=== PATIENT | male | born 1985 | race Caucasian/White ===

== ENCOUNTER → 2019-09-25 14:19 | Outpatient (CLI) | payer OTHER, SELFPAY ==
--- NOTE | 2019-09-25 14:25 | RAD_ITS ---
STUDY: X-RAY CHEST REASON FOR EXAM: Male, 34 years old. Coughing and congestion. Lightheadedness. History of pectus excavatum with trauma surgery. TECHNIQUE: PA and lateral views of the chest. COMPARISON: July 27, 2015. FINDINGS: The lungs are clear and expanded. There is no demonstrated pleural abnormality. Normal size heart. Normal mediastinum and nathan. Normal visualized pulmonary arteries. Normal visualized aortic arch and descending thoracic aorta. Normal visualized thoracic spine. Again seen in evidence of pectus excavatum deformity, unchanged from prior study. There is no demonstrated abnormality of the visualized soft tissue structures of the upper abdomen. RAD/Chest PA and Lateral IMPRESSION: Pectus excavatum deformity without acute cardiopulmonary disease or major interval change. Electronically Signed: Issa Patino DO at 21:08 EST Tel [phone], Service support ,
[2019-09-25 15:44] LABS: Absolute Lymphocyte Count 2.18 X10^3/uL (0.83-4.51); Absolute Neutrophil Count 2.4 X10^3/uL (2.0-7.7); Basophil# 0.02 X10^3/uL; Basophil% 0.4 % (0-1); Eosinophil# 0.01 X10^3/uL; Eosinophils% 0.2 % (0-5); Hematocrit 46.6 % (40-54); Hemoglobin 15.9 g/dL (13.0-16.5); Lymphocyte # 2.18 X10^3/ul (4.0); Lymphocyte % 44.9 % (19-41); Mean Corp Hgb Conc 34.1 g/dL (32-36); Mean Corpuscular Hgb 30.5 pg (27.0-32.0); Mean Corpuscular Volume 89.3 fL (80-94); Monocyte# 0.23 X10^3/uL; Monocyte% 4.7 % (0-10); NRBC Flagged by Analyzer 0 % (0-5); Neutrophil # 2.39 X10^3/uL (2.7-7.7); Neutrophil % 49.4 % (47-70); Platelet Count 204 K/mm3 (150-450); RBC Distribution Width SD 39.4 fl (35.1-43.9); Red Blood Count 5.22 M/mm3 (4.6-6.2); White Blood Count 4.9 K/mm3 (4.4-11.0)
[2019-09-25 16:07] LABS: Anion Gap 6 (5-15); BUN 17 mg/dL (7-18); BUN/Creat Ratio 15.9 RATIO (10-20); Calcium,Total 9.3 mg/dL (8.5-10.1); Chloride 105 mmol/L (98-107); Creatinine, Serum 1.07 mg/dL (0.70-1.30); EST Glomerular Filtration Rate 83 mL/min (>60); Est Glom Filt Rate - Afr Amer 100 mL/min (>60); Glucose 84 mg/dL (74-106); Potassium 3.9 mmol/L (3.5-5.1); Sodium Level 141 mmol/L (136-145)
== END ==
PROVIDERS: PCP Family Medicine; Referring Provider Family Medicine; Visit Provider Family Medicine
DX: R05 Cough (principal); R55 Syncope and collapse
CPT/HCPCS: 36415; 71046; 80048; 85025

== ENCOUNTER → 2020-03-16 11:53 | Outpatient (CLI) | payer BC, SELFPAY ==
[2015-07-27 18:05] VITALS: BMI 30.9
[2020-03-16 16:19] LABS: Vitamin D,25 Hydroxy 46.4 ng/mL
[2020-03-16 16:26] LABS: Anion Gap 6 (5-15); BUN 15 mg/dL (7-18); BUN/Creat Ratio 14.9 RATIO (10-20); Calcium,Total 8.8 mg/dL (8.5-10.1); Chloride 106 mmol/L (98-107); Cholesterol 168 mg/dL (200); Creatinine, Serum 1.01 mg/dL (0.70-1.30); EST Glomerular Filtration Rate 88 mL/min (>60); Est Glom Filt Rate - Afr Amer 107 mL/min (>60); Glucose 86 mg/dL (74-106); High Density Lipoprotein 28 mg/dL; Potassium 4.1 mmol/L (3.5-5.1); Sodium Level 138 mmol/L (136-145); Triglycerides 241 mg/dL; Very Low Density Lipoprotein 48 mg/dL (5-40)
== END ==
PROVIDERS: PCP Family Medicine; Visit Provider Family Medicine
DX: Z00.00 Encounter for general adult medical examination without abnormal findings (principal)
CPT/HCPCS: 36415; 80048; 80061; 82306

== ENCOUNTER → 2020-08-25 14:07 | Outpatient (CLI) | payer BC, SELFPAY ==
--- NOTE | 2020-08-25 14:16 | VDLE_ITS ---
Reason For Study: leg pain Procedure LEFT This is a venous duplex using B-mode, color GSV is normal. flow and spectral Doppler. CFV is compressible, spontaneous, phasic, Exam performed in department. competent, and demonstrates normal The exam was abbreviated due to the COVID 19 augmentation. protocol. FV is compressible, spontaneous, phasic, The exam was diagnostic. competent and demonstrates normal A preliminary report was called and/or faxed augmentation. to Dr. Sam. POP V is compressible, spontaneous, phasic, competent and demonstrates normal augmentation. T/P Trunk is compressible. PTV is compressible. LT PerV is compressible. Interpretation Summary Deep veins of the left lower extremity are patent and compressible segmentally. There is no evidence of left lower extremity deep vein thrombosis. Valvular competence appears intact within the proximal deep venous system on the left . The left great saphenous vein appears patent and compressible segmentally. Ordering Physician: Finn Sam Performed By: Herbert Araujo RVT
== END ==
PROVIDERS: PCP Family Medicine; Referring Provider Family Medicine; Visit Provider Family Medicine
DX: M79.605 Pain in left leg (principal)
CPT/HCPCS: 93971

== ENCOUNTER → 2021-04-15 | Outpatient (CLI) | payer BC, SELFPAY | END | disposition home or self-care (01) | LOC: LABSPEC 11:27 | PROVIDERS: PCP Family Medicine; Visit Provider Family Medicine | DX: R05 Cough (principal) | CPT/HCPCS: 87635; U0005; U0003 ==

== ENCOUNTER 2021-04-20 14:12 | Emergency (ER) | payer BC, SELFPAY ==
[2021-04-20 14:13] VITALS: BP 164/99; PULSE 72; RESP 15; TEMP 36.6; O2SAT 100; BMI 29.0
--- NOTE | 2021-04-20 15:10 | RAD_ITS ---
STUDY: X-RAY CHEST REASON FOR EXAM: Male, 36 years old. COVID TECHNIQUE: Single AP portable view of the chest. COMPARISON: Comparison is made with prior examination dated 09/25/2019. FINDINGS: Hyperinflation. Once again, there is deformity of the upper chest bilaterally. Normal size heart. Normal mediastinum and nathan. Normal visualized pulmonary arteries. Normal visualized aortic arch and descending thoracic aorta. Normal visualized thoracic spine. Normal visualized ribs, clavicles, and shoulders. There is no demonstrated abnormality of the visualized soft tissue structures of the upper abdomen. RAD/Chest 1 View IMPRESSION: Hyperinflation. The lungs are clear. Electronically Signed: Clint Mancilla MD at 15:35 EDT , Service support ,
--- NOTE | 2021-04-20 15:16 | ED.VIS.DYS ---
HPI History of Present Illness Chief Complaint: Cough Detail of Chief Complaint: Diagnosed Covid positive last . Informant: patient Onset/Context/Timing Onset: Weeks Context: gradual Timing: Continuous Quality: Positive for Dyspnea on exertion Current Severity: Mild Maximum Severity: Mild Associated Symptoms cough and yellow sputum Chest Pain: Negative for None, Pleuritic and Pressure Narrative Narrative: 36-year-old male has history of mild asthma. Has had symptoms since last Monday so about a week of symptoms and he was diagnosed on with COVID-19. These have a bit more trouble breathing. Really denies chest pain. He has had fevers as high as 103. at home with similar symptoms. PE Risk Factors: Negative for Cancer, OCP + Smoking + > 35, Prior DVT or PE, Recent immobilization, Recent surgery and Recent travel Prior similar symptoms: Yes Recent Illness/Hospitalization: No PFSH PFSH Medical History (Updated 04/20/21 @ 15:[address] Corwin Langley MD) Asthma History of deviated nasal septum History of fungal pneumonia Home Medications No Known/Unobtainable [No Known Home Medications] 07/01/15 [History Last Taken Unknown] Allergy/AdvReac Type Severity Reaction Status Date / Time No Known Allergies Allergy Verified 04/20/21 15:22 Surgical History (Updated 04/20/21 @ 15:25 by Anusha Farris) History of tonsillectomy and adenoidectomy Social History Smoking Status: Never smoker ROS ROS ED ROS Narrative Cough, shortness of breath and fever. Review of Systems ROS Unobtainable: Denies due to encephalopathy Constitutional Constitutional ED: Reports fever(s) Eyes Eyes: Denies change in vision ENT ENT ED: Denies ear pain or sore throat Cardiovascular Cardiovascular: Denies chest pain or palpitations Respiratory/Chest Respiratory/Chest: Reports cough, dyspnea and sputum Gastrointestinal Gastrointestinal: Denies abdominal pain, diarrhea, nausea or vomiting Genitourinary Genitourinary ED: Denies dysuria Musculoskeletal Musculoskeletal: Denies myalgias Integumentary Denies rash Neurologic Neurologic: Denies headache(s) Psychiatric Psychiatric: Denies depression Endocrine Endocrinology: Denies polyuria Hematologic/Lymphatic Hematologic/Lymphatic: Denies easy bruising Allergic/Immunologic Allergic/Immunologic ED: Denies urticaria EXAM Physical Exam Narrative Exam Narrative: 36-year-old male no acute distress. Vital signs stable afebrile. Pulse ox 100% on room air no signs hypoxia. Heart rate 72. HEENT exam unremarkable. Neck nontender no JVD. No lymphadenopathy. Lungs clear to auscultation bilaterally. Heart regular rhythm no murmur. Rate about 70. Abdomen soft nontender. Moving all 4 extremities. Calves nontender no edema no cords. Neurologically awake alert no focal motor deficits. Const Vital Signs: 04/20/21 14:13 Temperature 97.8 F Temperature Source Temporal Pulse Rate 72 Respiratory Rate 15 Blood Pressure 164/99 H Blood Pressure Mean 120 Pulse Ox 100 Oxygen Delivery Method Room Air Positive well nourished and well developed; Negative for obese, cachectic or unkempt General Appearance ED: well developed and NAD; Negative for unkempt or cachectic Nutritional Appearance: Negative for cachectic or obese HEENT Reports moist mucous membranes atraumatic; Negative for trauma or tenderness Eyes PERRL and EOMs intact bilaterally General Eye ED: Negative for pale conjunctiva or scleral icterus Neck no lymphadenopathy, supple, no meningeal signs and no JVD General: Negative for tenderness Resp normal respiratory effort and clear to auscultation bilaterally Auscultation: Negative for rales, rhonchi, wheezes or diminished lung sounds Cardio regular rate, regular rhythm, S1 normal heart sound, S2 normal heart sound and no murmurs GI non-tender, non-distended and no masses Auscultation: normoactive bowel sounds Palpation: soft; Negative for tender, guarding or rebound tenderness present Back/Spine no CVA tenderness and normal to inspection General Back: Negative for CVA tenderness or tenderness Extremity normal to inspection General Extremety ED: Negative for edema or tenderness General Extremity: Negative for edema Neuro oriented x3 Sensorium / Orientation: alert, oriented to person, oriented to place, oriented to time, orientation impaired and confused; Negative for lethargic or stuporous Motor Exam: strength 5/5 throughout Psych mental status grossly normal Appearance: Negative for unkempt Skin Lesions: no lesions Rashes: no rashes MDM MDM MDM Narrative Medical decision making narrative: Patient with Covid symptoms for a week diagnosis for the last 5 to 6 days. Plan shortness of breath. Vital signs are stable. Pulse ox 100%. I will obtain a chest x-ray. Steroids, antibiotics and an inhaler from his primary care physician. Radiography Chest X-Ray - ED: 1 View, Read by ED Physician, Heart, Lungs, Mediastinum, Bony Structures, No Acute Disease and Chronic Changes Diagnostic Testing: Portable single view chest x-ray interpreted by myself shows no acute abnormality. He does have chronic changes from pectus excavatum but no acute abnormalities. I went over the x-ray with the patient. Given his pulse ox 100% he is in no distress he is already on steroids, antibiotics and inhaler and although there is much to add at this time. He will be referred for possible monoclonal antibody therapy to see if he would be a candidate would benefit from that. Discharge Plan Triage Chief Complaint: Cough ED Provider: Corwin Langley Dx/Rx/DC Orders Clinical Impression: COVID-19 Instructions: Coronavirus Disease 2019 (COVID-19): Overview Prescriptions: No Action No Known Home Medications RF: 0 Primary Care Provider: Finn Sam Referrals: Finn Sam MD [Primary Care Provider] - 3-5 Days if not improving Activity Restrictions/Additional Instructions: Continue on your current medications. Follow-up with primary care physician ensure you are improving in 3 to 5 days. Return emergency department if you feel a lot worse. Today her vital signs are normal and your pulse ox which is your oxygenation is 100% which is excellent. Your chest x-ray is basically unremarkable. Hospital will contact you for possible for outpatient monoclonal antibody therapy consideration. Disposition Disposition: Home, Self Care
[2021-04-20 15:22] VITALS: O2SAT 99
== END 2021-04-20 16:11 | disposition home or self-care (01) ==
PROVIDERS: Emergency Provider Emergency Medicine; PCP Family Medicine
DX: U07.1 COVID-19 (principal); J45.909 Unspecified asthma, uncomplicated
CPT/HCPCS: 71045; 99282

== ENCOUNTER 2021-04-22 14:36 | Outpatient (CLI) | payer BC, SELFPAY ==
[2021-04-21 13:36] VITALS: BMI 29.0
[2021-04-22 14:43] VITALS: BP 140/77; PULSE 77; RESP 18; TEMP 36.6; O2SAT 97; BMI 29.8
[2021-04-22] MEDS: 0.9% Saline Lock 10 ML Syringe IV (14:57)
[2021-04-22 15:36] VITALS: BP 123/73; PULSE 67; RESP 20; TEMP 36.6; O2SAT 96
[2021-04-22 16:06] VITALS: BP 119/68; PULSE 65; RESP 18; TEMP 36.5; O2SAT 95
[2021-04-22 16:36] VITALS: BP 124/68; PULSE 82; RESP 18; TEMP 36.7; O2SAT 97
== END 2021-04-22 16:42 | disposition home or self-care (01) ==
LOC: ICUOUT 14:37 → ICU 14:37
PROVIDERS: PCP Family Medicine; Referring Provider Nurse Practitioner Acute Care; Visit Provider Nurse Practitioner Acute Care
DX: Z23 Encounter for immunization (principal); U07.1 COVID-19
CPT/HCPCS: J7050; M0243; A4216; Q0244

== ENCOUNTER 2021-11-29 08:17 | Outpatient (CLI) | payer BC, SELFPAY ==
[2021-11-29 10:27] LABS: Anion Gap 7 (5-15); BUN 11 mg/dL (7-18); BUN/Creat Ratio 11.8 RATIO (10-20); Calcium,Total 9.1 mg/dL (8.5-10.1); Chloride 108 mmol/L (98-107); Cholesterol 164 mg/dL (200); Creatinine, Serum 0.93 mg/dL (0.70-1.30); EST Glomerular Filtration Rate 96 mL/min (>60); Est Glom Filt Rate - Afr Amer 116 mL/min (>60); Glucose 97 mg/dL (74-106); High Density Lipoprotein 31 mg/dL; Potassium 3.9 mmol/L (3.5-5.1); Sodium Level 141 mmol/L (136-145); Triglycerides 183 mg/dL; Very Low Density Lipoprotein 37 mg/dL (5-40)
== END 2021-11-29 23:59 | disposition home or self-care (01) ==
PROVIDERS: PCP Family Medicine; Referring Provider Family Medicine; Visit Provider Family Medicine
DX: Z00.00 Encounter for general adult medical examination without abnormal findings (principal)
CPT/HCPCS: 36415; 80048; 80061

== ENCOUNTER 2021-12-16 09:32 | Outpatient (CLI) | payer BC, SELFPAY ==
[2021-12-21 12:00] LABS: Alternaria tenuis <0.10 kU/L (Class 0); Ash, White <0.10 kU/L (Class 0); Aspergillus fumigatus <0.10 kU/L (Class 0); Bermuda Grass <0.10 kU/L (Class 0); Birch <0.10 kU/L (Class 0); Black Walnut <0.10 kU/L (Class 0); Cat Hair / Dander,Stand <0.10 kU/L (Class 0); Cedar, Mountain <0.10 kU/L (Class 0); Cladosporium herbarum <0.10 kU/L (Class 0); Cockroach, American 0.26 kU/L (Class 0/I); Cottonwood <0.10 kU/L (Class 0); D farinae Mite <0.10 kU/L (Class 0); D pteronyssinus <0.10 kU/L (Class 0); Dog Epithelia <0.10 kU/L (Class 0); Elm, American White <0.10 kU/L (Class 0); Immunoglobulin E 11 IU/mL (6-495); Maple/Box Elder <0.10 kU/L (Class 0); Mulberry, White <0.10 kU/L (Class 0); Oak, White <0.10 kU/L (Class 0); Pecan <0.10 kU/L (Class 0); Penicillium Notatum <0.10 kU/L (Class 0); Pigweed, Rough <0.10 kU/L (Class 0); Ragweed, Short/Common <0.10 kU/L (Class 0); Russian Thistle <0.10 kU/L (Class 0); Sheep Sorrel <0.10 kU/L (Class 0); Sycamore, American <0.10 kU/L (Class 0); Timothy Grass <0.10 kU/L (Class 0)
[2021-12-21 15:45] LABS: Mouse Urine <0.10 kU/L (Class 0)
== END 2021-12-16 23:59 | disposition home or self-care (01) ==
LOC: MTLAB 09:33
PROVIDERS: PCP Family Medicine; Referring Provider Family Medicine; Visit Provider Family Medicine
DX: T78.40XA Allergy, unspecified, initial encounter (principal)
CPT/HCPCS: 36415; 82785; 86003

== ENCOUNTER → 2022-08-20 | Outpatient (CLI) | payer BC, SELFPAY ==
--- NOTE | 2022-08-20 10:00 | MRI_ITS ---
STUDY: MRI LEFT KNEE REASON FOR EXAM: Male, 37 years old. LEFT knee sprain TECHNIQUE: Standardized fat and water weighted pulse sequences were obtained in all 3 orthogonal planes. COMPARISON: None. FINDINGS: Normal medial meniscus. Normal hyaline cartilage of the medial femorotibial compartment. Normal medial femoral condyle and tibial plateau. Normal medial collateral ligamentous complex (MCL). Normal distal semimembranosus, gracilis and semitendinosus tendons. Normal lateral meniscus. Normal hyaline cartilage of the lateral femorotibial compartment. Normal lateral femoral condyle and tibial plateau. Normal proximal tibiofibular articulation. Normal lateral collateral (fibular) ligament. Normal popliteus tendon. Normal biceps femoris tendon. Normal anterior cruciate ligament (ACL). Normal posterior cruciate ligament (PCL). Normal congruent patellofemoral articulation. Normal hyaline cartilage of the patellofemoral compartment. Normal medial and lateral patellar retinaculum. Normal quadriceps tendon. Normal patellar tendon. Normal Hoffa''s fat pad. Small joint effusion and 4 cm Griffin''s cyst noted. No marrow edema or osteochondral defect or occult fracture is present. The soft tissues are unremarkable. The otherwise visualized osseous structures are unremarkable. MRI/Lower Ext Joint Only (Routine) IMPRESSION: Small joint effusion and 4 cm Griffin''s cyst noted. No marrow edema or osteochondral defect or occult fracture is present. Electronically Signed: Hany Sorenson MD at 12:28 EST ,
== END | disposition home or self-care (01) ==
PROVIDERS: PCP Family Medicine; Referring Provider Specialist; Visit Provider Specialist
DX: S83.8X2A Sprain of other specified parts of left knee, initial encounter (principal); M71.22 Synovial cyst of popliteal space [Baker], left knee; M25.462 Effusion, left knee
CPT/HCPCS: 73721

== ENCOUNTER → 2022-09-09 | Outpatient (CLI) | payer BC, SELFPAY ==
--- NOTE | 2022-09-09 09:07 | RAD_ITS ---
INDICATION: ABDOMINAL PAIN EXAMINATION/TECHNIQUE: X-RAY - XR Chest 2 Views COMPARISON: 04/20/2021. FINDINGS: There is an upper chest deformity. The lungs are hyperinflated but clear. The cardiomediastinal silhouette is unremarkable. No pleural effusion or pneumothorax. No acute osseous abnormalities. RAD/Chest PA and Lateral IMPRESSION: No acute radiographic abnormalities. Hyperinflated lungs. Electronically Signed: Thiago Lopez MD at 16:50 EST ,
[2022-09-09 10:25] LABS: Absolute Lymphocyte Count 3.17 X10^3/uL (0.83-4.51); Absolute Neutrophil Count 2.9 X10^3/uL (2.0-7.7); Basophil# 0.02 X10^3/uL; Basophil% 0.3 % (0-1); Eosinophil# 0.18 X10^3/uL; Eosinophils% 2.6 % (0-5); Hematocrit 46.5 % (40-54); Hemoglobin 16.5 g/dL (13.0-16.5); Lymphocyte # 3.17 X10^3/ul (0.83-4.51); Lymphocyte % 46.5 % (19-41); Mean Corp Hgb Conc 35.5 g/dL (32-36); Mean Corpuscular Hgb 31.6 pg (27.0-32.0); Mean Corpuscular Volume 89.1 fL (80-94); Mean Platelet Vol. 10.5 fl (6.2-12.0); Monocyte# 0.53 X10^3/uL; Monocyte% 7.8 % (0-10); NRBC Flagged by Analyzer 0 % (0-5); Neutrophil # 2.88 X10^3/uL (2.7-7.7); Neutrophil % 42.4 % (47-70); Platelet Count 214 K/mm3 (150-450); RBC Distribution Width CV 12.6 % (11.6-14.6); RBC Distribution Width SD 41.2 fl (35.1-43.9); Red Blood Count 5.22 M/mm3 (4.6-6.2); White Blood Count 6.8 K/mm3 (4.4-11.0)
[2022-09-09 10:52] LABS: ALB/GLOB Ratio 1.2 RATIO (0.9-2.4); AST(SGOT) 35 U/L (15-37); Alanine Aminotransfer ALT/SGPT 77 U/L (16-61); Alkaline Phosphatase 68 U/L (45-117); Anion Gap 4 (5-15); BUN 15 mg/dL (7-18); BUN/Creat Ratio 15.3 RATIO (10-20); Calcium,Total 9.3 mg/dL (8.5-10.1); Chloride 109 mmol/L (98-107); Creatinine, Serum 0.98 mg/dL (0.70-1.30); EST Glomerular Filtration Rate 90 mL/min (>60); Est Glom Filt Rate - Afr Amer 109 mL/min (>60); Globulin 3.4 g/dL (2.2-4.2); Glucose 96 mg/dL (74-106); Protein, Total 7.4 g/dL (6.4-8.2); Sodium Level 141 mmol/L (136-145)
== END | disposition home or self-care (01) ==
LOC: MTLAB 08:44
PROVIDERS: PCP Family Medicine; Referring Provider Family Medicine; Visit Provider Family Medicine
DX: R10.9 Unspecified abdominal pain (principal); M95.4 Acquired deformity of chest and rib
CPT/HCPCS: 36415; 71046; 80053; 85025

== ENCOUNTER → 2022-09-20 | Outpatient (CLI) | payer BC, SELFPAY ==
--- NOTE | 2022-09-20 07:21 | US_ITS ---
Examination: Right upper quadrant ultrasound. INDICATION: Elevated LFTs. COMPARISON: None TECHNIQUE: A dedicated right upper quadrant ultrasound was obtained including Doppler images. FINDINGS: The liver is diffusely echogenic consistent with fatty infiltration. The gallbladder is within normal limits. The common bile duct measures 2.5 mm. The visualized pancreas is within normal limits. The right kidney measures 3.1 cm in length. There is no hydronephrosis. No renal calculi are seen. US/Abdomen Limited IMPRESSION: Fatty infiltration of the liver. Electronically Signed: Shannan Mckeon MD at 8:02 EST ,
== END | disposition home or self-care (01) ==
LOC: US 07:18
PROVIDERS: PCP Family Medicine; Visit Provider Family Medicine
DX: K76.0 Fatty (change of) liver, not elsewhere classified (principal); R79.89 Other specified abnormal findings of blood chemistry
CPT/HCPCS: 76705

== ENCOUNTER → 2023-03-02 | Outpatient (CLI) | payer BC, SELFPAY ==
[2023-03-02 16:21] LABS: ALB/GLOB Ratio 1.2 RATIO (0.9-2.4); AST(SGOT) 24 U/L (15-37); Alanine Aminotransfer ALT/SGPT 42 U/L (16-61); Albumin, Serum 4.3 g/dL (3.2-5.0); Alkaline Phosphatase 75 U/L (45-117); Anion Gap 5 (5-15); BUN 15 mg/dL (7-18); BUN/Creat Ratio 15.9 RATIO (10-20); Calcium,Total 9.4 mg/dL (8.5-10.1); Chloride 107 mmol/L (98-107); Creatinine, Serum 0.94 mg/dL (0.70-1.30); EST Glomerular Filtration Rate 94 mL/min (>60); Est Glom Filt Rate - Afr Amer 114 mL/min (>60); Globulin 3.6 g/dL (2.2-4.2); Glucose 89 mg/dL (74-106); Potassium 3.9 mmol/L (3.5-5.1); Protein, Total 7.9 g/dL (6.4-8.2); Sodium Level 140 mmol/L (136-145)
== END | disposition home or self-care (01) ==
LOC: MTLAB 13:46
PROVIDERS: PCP Family Medicine; Referring Provider Family Medicine; Visit Provider Family Medicine
DX: R79.89 Other specified abnormal findings of blood chemistry (principal)
CPT/HCPCS: 36415; 80053

== ENCOUNTER → 2023-09-20 | Outpatient (CLI) | payer BC, SELFPAY ==
[2023-09-20 16:27] LABS: ALB/GLOB Ratio 1.2 RATIO (0.9-2.4); AST(SGOT) 35 U/L (15-37); Alanine Aminotransfer ALT/SGPT 61 U/L (16-61); Albumin, Serum 4.5 g/dL (3.2-5.0); Alkaline Phosphatase 81 U/L (45-117); Anion Gap 6 (5-15); BUN 11 mg/dL (7-18); BUN/Creat Ratio 10.7 RATIO (10-20); Calcium,Total 9.1 mg/dL (8.5-10.1); Chloride 106 mmol/L (98-107); Cholesterol 162 mg/dL (200); Creatinine, Serum 1.03 mg/dL (0.70-1.30); EST Glomerular Filtration Rate 85 mL/min (>60); Est Glom Filt Rate - Afr Amer 103 mL/min (>60); Globulin 3.9 g/dL (2.2-4.2); Glucose 89 mg/dL (74-106); High Density Lipoprotein 28 mg/dL; Potassium 4.1 mmol/L (3.5-5.1); Protein, Total 8.4 g/dL (6.4-8.2); Sodium Level 139 mmol/L (136-145); Triglycerides 125 mg/dL; Very Low Density Lipoprotein 25 mg/dL (5-40)
== END | disposition home or self-care (01) ==
PROVIDERS: PCP Family Medicine; Referring Provider Family Medicine; Visit Provider Family Medicine
DX: Z00.00 Encounter for general adult medical examination without abnormal findings (principal); R79.89 Other specified abnormal findings of blood chemistry
CPT/HCPCS: 36415; 80053; 80061

== ENCOUNTER → 2024-01-03 | Outpatient (CLI) | payer BC, SELFPAY ==
--- NOTE | 2024-01-03 08:45 | VAS_PTH ---
PATIENT: YASSINE HUGHES [facility] U#:[id number] AGE/SX: 38/M ROOM: RE01/03/[address]: Dr. Curt Encinas MD : 1985 BED: DIS: 01/03/2024 SPEC #: [id number] RECD: 01/03/24 11:42 STATUS: SPRING REYazan #: [id number] LILIBETH: 01/03/24 08:[address]: Curt Encinas DEPT: SURGICAL PATHOLOGY RECD BY: Gale Priest ENTERED: 01/03/24 13:46 SP TYPE: VAS OTHR DR: Dr. Finn Sam MD Tissues: A - Vas deferens, NOS B - Vas deferens, NOS Procedures: Surgery Specimen Level II HEADER OPERATION: Bilateral partial vasectomy PRE-OP DIAGNOSIS: Sterilization TISSUE SUBMITTED: A- Left vas deferens, B- Right vas deferens MICROSCOPIC DIAGNOSIS A. Left vas deferens, partial vasectomy: Completely transected segment of vas deferens, no pathologic diagnosis. B. Right vas deferens, partial vasectomy: Completely transected segment of vas deferens, no pathologic diagnosis. RICHARD: 01/04/2024 MICROSCOPIC DESCRIPTION Slides are reviewed. GROSS DESCRIPTION A - Received is one container designated left vas deferens. The specimen consists of a tubular segment of pineda soft tissue measuring 0.7 cm in length and 0.2 cm in diameter. The specimen is sectioned and submitted entirely in one cassette. B - Received is one container designated right vas deferens. The specimen consists of a tubular segment of pindea soft tissue measuring 0.5 cm in length and 0.2 cm in diameter. The specimen is sectioned and submitted entirely in one cassette. / SJ: 01/02 TC:4 [facility]: [id number] x2
== END | disposition home or self-care (01) ==
LOC: LABSPEC 11:46
PROVIDERS: PCP Family Medicine; Referring Provider Surgery; Visit Provider Surgery
DX: Z30.2 Encounter for sterilization (principal)
CPT/HCPCS: 88302

== ENCOUNTER → 2024-02-13 | Outpatient (CLI) | payer BC, SELFPAY ==
[2024-02-13 07:53] LABS: Cytology, Semen SEE PATHOLOGY REPORT
--- NOTE | 2024-02-13 07:53 | CYSPIN_PTH ---
PATIENT: YASSINE HUGHES [facility] U#:[id number] AGE/SX: 39/M ROOM: RE02/13/[address]: Dr. Curt Encinas MD : 1985 BED: DIS: 02/13/2024 SPEC #: [id number] RECD: 02/13/24 09:17 STATUS: SPRING REYazan #: [id number] LILIBETH: 02/13/24 07:[address]: Curt Encinas DEPT: CYTOLOGY RECD BY: Gale Priest ENTERED: 02/13/24 09:19 SP TYPE: CYSPIN FL OTHR DR: Dr. Finn Sam MD Tissues: Cytologic material, NOS Procedures: Pap Stain (control) Special Stain Group II Cytospin Fluid HEADER OPERATION: Post vasectomy PRE-OP DIAGNOSIS: Post vasectomy status TISSUE SUBMITTED: Seminal fluid for cytology DIAGNOSIS CYTOLOGY Seminal fluid for analysis (cytospin): Abundant spermatozoa present. AM/mr 02/13/2024 CYTOLOGY STUDY Slides are reviewed. CYTOLOGY GROSS Received is 1.0 ml of viscous opaque fluid labeled with the patient's name and and designated per the requisition as Seminal fluid. Submitted for cytology preparation including cell block. Mr 02/13/2024 TC:5 CPT: 73764
== END | disposition home or self-care (01) ==
PROVIDERS: PCP Family Medicine; Referring Provider Surgery; Visit Provider Surgery
DX: Z30.2 Encounter for sterilization (principal)
CPT/HCPCS: 88108; 88313

== ENCOUNTER → 2024-04-15 | Outpatient (CLI) | payer BC, SELFPAY ==
[2024-04-15 18:06] LABS: ALB/GLOB Ratio 1.1 RATIO (0.9-2.4); AST(SGOT) 25 U/L (15-37); Alanine Aminotransfer ALT/SGPT 40 U/L (16-61); Albumin, Serum 4.2 g/dL (3.2-5.0); Alkaline Phosphatase 79 U/L (45-117); Anion Gap 6 (5-15); BUN 14 mg/dL (7-18); BUN/Creat Ratio 14.1 RATIO (10-20); Calcium,Total 9.6 mg/dL (8.5-10.1); Chloride 106 mmol/L (98-107); Creatinine, Serum 0.99 mg/dL (0.70-1.30); EST Glomerular Filtration Rate 88 mL/min (>60); Est Glom Filt Rate - Afr Amer 107 mL/min (>60); Globulin 3.8 g/dL (2.2-4.2); Glucose 92 mg/dL (74-106); Sodium Level 140 mmol/L (136-145); Uric Acid 6.9 mg/dL (3.5-7.2)
== END | disposition home or self-care (01) ==
PROVIDERS: PCP Family Medicine; Referring Provider Family Medicine; Visit Provider Family Medicine
DX: M79.672 Pain in left foot (principal)
CPT/HCPCS: 36415; 80053; 84550

== ENCOUNTER → 2024-05-01 | Outpatient (CLI) | payer BC, SELFPAY ==
[2024-05-01 13:50] LABS: Bacteria 0 SEEN /hpf (None Seen); Mucous, Urine 0 SEEN /hpf (<or=2+); Red Blood Cells-Urine 0 SEEN /hpf (0-5); Squamous Epithelial Cells - UA 0 SEEN /hpf (0-5); White Blood Cells 0 SEEN /hpf (0-5)
[2024-05-01 15:12] LABS: Absolute Neutrophil Count 3.8 X10^3/uL (2.0-7.7); Basophil# 0.02 X10^3/uL; Basophil% 0.3 % (0-1); Eosinophil# 0.09 X10^3/uL; Eosinophils% 1.2 % (0-5); Hematocrit 44.7 % (40-54); Hemoglobin 15.4 g/dL (13.0-16.5); Lymphocyte % 40.4 % (19-41); Mean Corp Hgb Conc 34.5 g/dL (32-36); Mean Corpuscular Hgb 30.5 pg (27.0-32.0); Mean Corpuscular Volume 88.5 fL (80-94); Mean Platelet Vol. 10.4 fl (6.2-12.0); Monocyte# 0.47 X10^3/uL; Monocyte% 6.3 % (0-10); NRBC Flagged by Analyzer 0 % (0-5); Neutrophil # 3.83 X10^3/uL (2.7-7.7); Neutrophil % 51.5 % (47-70); Platelet Count 201 K/mm3 (150-450); RBC Distribution Width CV 12.5 % (11.6-14.6); RBC Distribution Width SD 40.7 fl (35.1-43.9); Red Blood Count 5.05 M/mm3 (4.6-6.2); White Blood Count 7.4 K/mm3 (4.4-11.0)
[2024-05-01 15:17] LABS: Color, Urine Yellow (Yellow); Glucose, Dipstick Normal (Normal); Ketone-Dipstick Negative (Negative); Leukocyte Esterase-Dipstick Negative /ul (Negative); Nitrite-Dipstick Negative (Negative); Occult Blood-Urine Negative /ul (Negative); Protein-Dipstick Negative (Negative); Urine Bilirubin Dipstick Negative (Negative); Urine Clarity Clear (Clear); Urine Urobilinogen Normal (Normal)
[2024-05-01 15:54] LABS: ALB/GLOB Ratio 1.2 RATIO (0.9-2.4); AST(SGOT) 24 U/L (15-37); Alanine Aminotransfer ALT/SGPT 36 U/L (16-61); Alkaline Phosphatase 71 U/L (45-117); Anion Gap 5 (5-15); BUN 16 mg/dL (7-18); BUN/Creat Ratio 15.1 RATIO (10-20); Calcium,Total 9.1 mg/dL (8.5-10.1); Chloride 106 mmol/L (98-107); Creatinine, Serum 1.06 mg/dL (0.70-1.30); EST Glomerular Filtration Rate 82 mL/min (>60); Est Glom Filt Rate - Afr Amer 99 mL/min (>60); Globulin 3.4 g/dL (2.2-4.2); Glucose 94 mg/dL (74-106); Protein, Total 7.4 g/dL (6.4-8.2); Sodium Level 137 mmol/L (136-145)
== END | disposition home or self-care (01) ==
LOC: MTLAB 13:47
PROVIDERS: PCP Family Medicine; Referring Provider Family Medicine; Visit Provider Family Medicine
DX: R10.9 Unspecified abdominal pain (principal); R17 Unspecified jaundice; R53.83 Other fatigue
CPT/HCPCS: 36415; 80053; 81001; 84443; 85025

== ENCOUNTER → 2024-05-08 | Outpatient (CLI) | payer BC, SELFPAY ==
[2024-05-09 09:14] LABS: HEPATITIS B SURFACE AG Negative (Negative); Hep C Antibodies Non Reactive (Non Reactive); Hepatitis A IgM Antibody Negative (Negative); Hepatitis B Core AB IgM Negative (Negative)
== END | disposition home or self-care (01) ==
LOC: MFPLAB 09:51
PROVIDERS: PCP Family Medicine; Visit Provider Family Medicine
DX: R17 Unspecified jaundice (principal)
CPT/HCPCS: 36415; 80074

== ENCOUNTER → 2024-10-04 | Outpatient (CLI) | payer BC, SELFPAY ==
[2024-10-04 11:05] LABS: ALB/GLOB Ratio 1.1 RATIO (0.9-2.4); AST(SGOT) 30 U/L (15-37); Alanine Aminotransfer ALT/SGPT 64 U/L (16-61); Albumin, Serum 4.1 g/dL (3.2-5.0); Alkaline Phosphatase 68 U/L (45-117); Anion Gap 5 (5-15); BUN 16 mg/dL (7-18); Calcium,Total 9.4 mg/dL (8.5-10.1); Chloride 107 mmol/L (98-107); Cholesterol 171 mg/dL (200); Creatinine, Serum 1.14 mg/dL (0.70-1.30); EST Glomerular Filtration Rate 75 mL/min (>60); Est Glom Filt Rate - Afr Amer 91 mL/min (>60); Globulin 3.8 g/dL (2.2-4.2); Glucose 92 mg/dL (74-106); High Density Lipoprotein 31 mg/dL; Potassium 4.5 mmol/L (3.5-5.1); Protein, Total 7.9 g/dL (6.4-8.2); Sodium Level 139 mmol/L (136-145); Triglycerides 279 mg/dL; Uric Acid 7.4 mg/dL (3.5-7.2); Very Low Density Lipoprotein 56 mg/dL (5-40)
== END | disposition home or self-care (01) ==
LOC: MTLAB 08:12
PROVIDERS: PCP Family Medicine; Referring Provider Family Medicine; Visit Provider Family Medicine
DX: Z00.00 Encounter for general adult medical examination without abnormal findings (principal); R53.83 Other fatigue; M10.9 Gout, unspecified
CPT/HCPCS: 36415; 80053; 80061; 84403; 84550

== ENCOUNTER → 2024-10-24 | Outpatient (CLI) | payer BC, SELFPAY | END | disposition home or self-care (01) | LOC: LAB 09:16 | PROVIDERS: PCP Family Medicine; Referring Provider Surgery; Visit Provider Surgery | DX: Z30.2 Encounter for sterilization (principal) ==

== ENCOUNTER → 2025-02-07 | Outpatient (CLI) | payer OTHER, SELFPAY ==
[2025-02-07 20:11] LABS: Semen Analysis Post Vas ABSENT
== END | disposition home or self-care (01) ==
LOC: LABSPEC 11:15
PROVIDERS: PCP Family Medicine; Referring Provider Surgery; Visit Provider Surgery
DX: Z30.2 Encounter for sterilization (principal)
CPT/HCPCS: 89321

== ENCOUNTER → 2025-02-17 | Outpatient (CLI) | payer OTHER, SELFPAY ==
--- NOTE | 2025-02-17 17:50 | US_ITS ---
PROCEDURE: TESTICULAR WITH ARTERIAL FLOW, 02/17/2025 REASON FOR EXAM: LT PAIN,LUMP TECHNIQUE: Grayscale, color Doppler, and spectral Doppler evaluation of the scrotum and contents was performed. COMPARISON: None FINDINGS: RIGHT testicle: 4.5 x 3.0 x 2.4 cm. Appearance: Homogeneous echotexture. No visualized mass. Right epididymis: 3 x 4 x 3 mm cyst. 4 x 4 x 4 mm cyst. Epididymal head measures 16 x 6 x 7 mm. Vascular flow: Normal low resistance arterial waveforms. Hydrocele: Small. LEFT testicle: 4.4 x 2.9 x 2.0 cm. Appearance: Homogeneous echotexture. No visualized mass. Right epididymis: 6 x 6 x 4 mm cyst. 5 x 4 x 3 mm cyst. Epididymal head measures 15 x 14 x 15 mm. Vascular flow: Normal low resistance arterial waveforms. Hydrocele: Small with low-level debris. Scrotal wall: Borderline mildly thickened at 4 mm. US/Testicular with Arterial Flow IMPRESSION: 1. Slight asymmetric enlargement of the LEFT epididymal head without convincing hyperemia. Correlate for mild/early epididymitis. 2. Small bilateral hydroceles. Mild debris on the LEFT is nonspecific, possibl y reflecting blood products in the setting of trauma or perhaps pyocele given the appropriate context. 3. Borderline mild scrotal wall thickening. Correlate for clinical evidence of cellulitis, 3rd spacing, or other etiologies for borderline mild scrotal wall edema. 4. Additional description as above. Reading Location: [id number]
== END | disposition home or self-care (01) ==
LOC: US 18:03
PROVIDERS: PCP Family Medicine; Referring Provider Surgery; Visit Provider Surgery
DX: N50.812 Left testicular pain (principal)
CPT/HCPCS: 76870; 93976